=== PATIENT | female | born 1995 | race Caucasian/White ===

== ENCOUNTER 2023-09-16 22:49 | Emergency (ER) | payer OTHER ==
[~2023-09-16] VITALS: Ht 162.6 cm; Wt 77.2 kg
[2023-09-16] MEDS ORDERED: SERT25TA PO (23:00)
[2023-09-16 23:37] LABS: AMPHETAMINE SCREEN, URINE NEGATIVE (NEGATIVE); BARBITURATE SCREEN URINE NEGATIVE (NEGATIVE); BILIRUBIN,URINE NEGATIVE (NEGATIVE); CANNABINOID SCREEN, URINE NEGATIVE (NEGATIVE); CLARITY,URINE CLEAR; COCAINE SCREEN URINE NEGATIVE (NEGATIVE); COLOR,URINE YELLOW; GLUCOSE, URINE (UA) NEGATIVE (NEGATIVE); KETONES,URINE NEGATIVE (NEGATIVE); METHADONE STAT NEGATIVE (NEGATIVE); NITRITE,URINE NEGATIVE (NEGATIVE); OPIATE SCREEN URINE NEGATIVE (NEGATIVE); OXYCODONE STAT NEGATIVE (NEGATIVE); PROTEIN,URINE NEGATIVE (NEGATIVE); TRICYCLIC ANTIDEPRESSANTS SCRE NEGATIVE (NEGATIVE)
[2023-09-16 23:38] LABS: AMORPHOUS SEDIMENT,UR FEW AMOR URATES /LPF; BACTERIA,URINE FEW /HPF; LEUKOCYTE ESTERASE ,URINE NEGATIVE (NEGATIVE); RBC,URINE 0-2 /HPF; WBC,URINE RARE /HPF
--- NOTE | 2023-09-17 00:42 | ED Fall/Injury ---
General Chief Complaint: Trauma-Non Activation Stated Complaint: FALL - BACK PAIN Nursing Triage Note: C/O MID BACK PAIN AFTER TRIPPING/FALLING DOWN APPROX. 6 STAIRS APPROX. 1944. DENIES OTHER INJURIES. APAP TAKEN RADIOLOGY TECHNICIAN. Source: patient History of Present Illness Date Seen by Provider: Sep 16, 2023 Time Seen by Provider: 23:00 Initial Comments PT ARRIVES VIA POV FROM HOME PT STATES AROUND 1944 TONIGHT, SHE WENT OUTSIDE WHILE IT WAS RAINING AND SLIPPED ON WOODEN STEPS AND FELL DOWN APPROXIMATELY 6 STAIRS, LANDING ON HER BACK, AND HITTING THE BACK OF HER HEAD ON THE STAIRS NO LOSS OF CONSCIOUSNESS NO NECK PAIN C/O HEADACHE C/O MID BACK PAIN NO ARM OR LEG PAIN OR INJURY NO PARESTHESIAS OR MOTOR DEFICITS STATES IT "KNOCKED THE WIND OUT OF ME" NO SHORTNESS OF BREATH, BUT IT HURTS TO BREATHE, AND PAIN RADIATES ALL AROUND TO THE FRONT OF HER CHEST HURTS TO RAISE HER ARMS OR MOVE, OR SIT STRAIGHT UP + NAUSEA, NO VOMITING NO VISION CHANGES NO DIZZINESS TOOK 1 GRAM OF TYLENOL PRIOR TO ARRIVAL, WITHOUT RELIEF NO CHRONIC MEDICAL PROBLEMS NO PRIOR NECK OR BACK PAIN OR INJURIES LMP MID AUGUST, NORMAL. NO CONTROL PCP: [facility]. M0VED TO [facility] ABOUT 2 YEARS AGO Allergies and Home Medications Allergies Coded Allergies: No Known Drug Allergies (Unverified , 09/16/23) Patient Home Medication List Home Medication List Reviewed: Yes Cyclobenzaprine HCl (Cyclobenzaprine HCl) 10 Mg Tablet, 10 MG PO Q8H PRN for SPASMS Prescribed by: DAT ABERNATHY on 09/17/23104 Naproxen (Naproxen) 500 Mg Tablet.dr, 500 MG PO BID Prescribed by: DAT ABERNATHY on 09/17/23104 Sertraline HCl (Zoloft) 25 Mg Tablet, Unknown Dose PO, (Reported) Entered as Reported by: STEPHANIE BOURGEOIS on 09/16/23 2300 Last Action: New Order Review of Systems Review of Systems Constitutional: no symptoms reported Eyes: No Symptoms Reported Ears, Nose, Mouth, Throat: no symptoms reported Respiratory: see HPI Cardiovascular: see HPI Gastrointestinal: see HPI; No abdominal pain; nausea Genitourinary: no symptoms reported Musculoskeletal: see HPI, back pain Skin: no symptoms reported Psychiatric/Neurological: See HPI, Headache; Denies Numbness, Denies Paresthesia, Denies Tingling, Denies Tremors, Denies Weakness Past Dosdboo-Nuqlvt-Czcyes Hx Patient Social History Tobacco Use?: Yes Tobacco type used: Cigarettes Smoking Status: Current Everyday Smoker Substance use?: No Alcohol Use?: No Pt feels they are or have been: No Past Medical History Surgery/Hospitalization HX: CHOLECYSTECTOMY, DEPERSSION/ANXIETY Surgeries: Yes Gallbladder Respiratory: No Cardiac: No Neurological: No : No Last Menstrual Period: Aug 27, 2023 Reproductive Disorders: No Genitourinary: No Gastrointestinal: Yes (S/P CHOLECYSTECTOMY) Musculoskeletal: No Endocrine: No HEENT: No Cancer: No Psychosocial: Yes Anxiety, Depression Integumentary: No Blood Disorders: No Physical Exam Vital Signs Vital Signs - First Documented 09/16/23 22:54 Temp 36.3 Pulse 79 Resp 16 B/P (MAP) 103/70 (81) Pulse Ox 96 O2 Delivery Room Air Capillary Refill : Less Than 3 Seconds Height, Weight, BMI Height: '" Weight: lbs. oz. kg; 29.00 BMI Method: General Appearance: WD/WN, no apparent distress HEENT: PERRL/EOMI, other (NO EXTERNAL EVIDENCE OF TRAUMA) Neck: non-tender, full range of motion, supple, normal inspection Cardiovascular: regular rate, rhythm, no murmur Respiratory: normal breath sounds, no respiratory distress, no accessory muscle use Gastrointestinal: non tender, soft Back: other (MID BACK TENDERNESS. NO EXTERNAL EVIDENCE OF TRAUMA) Extremities: normal range of motion, non-tender, normal inspection, no pedal edema, no calf tenderness, normal capillary refill Neurologic/Psychiatric: manager validation II-XII nml as tested, no motor/sensory deficits, alert, normal mood/affect, oriented x 3 Skin: normal color, warm/dry Progress/Results/Core Measures Results/Orders Lab Results Laboratory Tests Test 09/16/23 23:07 Range/Units Urine Color YELLOW Urine Clarity CLEAR Urine pH 6.0 5-9 Urine Specific [place] >=1.030 1.016-1.022 Urine Protein NEGATIVE NEGATIVE Urine Glucose (UA) NEGATIVE NEGATIVE Urine Ketones NEGATIVE NEGATIVE Urine Nitrite NEGATIVE NEGATIVE Urine Bilirubin NEGATIVE NEGATIVE Urine Urobilinogen 0.2 < = 1.0 MG/DL Urine Leukocyte Esterase NEGATIVE NEGATIVE Urine RBC (Auto) TRACE H NEGATIVE Urine RBC 0-2 /HPF Urine WBC RARE /HPF Urine Squamous Epithelial Cells 2-5 /HPF Urine Crystals PRESENT H /LPF Urine Amorphous Sediment FEW KRISTOPHER URATES H /LPF Urine Bacteria FEW H /HPF Urine Casts NONE /LPF Urine Mucus MODERATE H /LPF Urine Culture Indicated YES Urine Opiates Screen NEGATIVE NEGATIVE Urine Oxycodone Screen NEGATIVE NEGATIVE Urine Methadone Screen NEGATIVE NEGATIVE Urine Barbiturates Screen NEGATIVE NEGATIVE Ur Tricyclic Antidepressants Screen NEGATIVE NEGATIVE Urine Phencyclidine Screen NEGATIVE NEGATIVE Urine Amphetamines Screen NEGATIVE NEGATIVE Urine Methamphetamines Screen NEGATIVE NEGATIVE Urine Benzodiazepines Screen NEGATIVE NEGATIVE Urine Cocaine Screen NEGATIVE NEGATIVE Urine Cannabinoids Screen NEGATIVE NEGATIVE My Orders Orders - DAT ABERNATHY DO Urine Bedside (09/16/23 23:05) Ct Head/Cervical Spine Wo (09/16/23 23:05) Ct Thoracic/Lumbar Spine Wo (09/16/23 23:05) Chest 1 View, Ap/Pa Only (09/16/23 23:05) Drug Screen Stat (Urine) (09/16/23 23:05) Ua Culture If Indicated (09/16/23 23:05) Ct Chest/Abdomen/Pelvis Wo (09/16/23 23:05) Urine Culture (09/16/23 23:07) Rx-Cyclobenzaprine Tablet (Rx-Flexeril T (09/17/23 00:59) Rx-Naproxen (Rx-Naprosyn) (09/17/23 00:59) Rx-Tramadol Hcl (Rx-Ultram) (09/17/23 00:59) Vital Signs/I&O 09/16/23 09/17/23 22:54 01:10 Temp 36.3 36.5 Pulse 79 74 Resp 16 16 B/P (MAP) 103/70 (81) 114/69 Pulse Ox 96 97 O2 Delivery Room Air Room Air Blood Pressure Mean: 81 Progress Progress Note : Progress Note VITALS STABLE NO DYSPNEA NO HYPOXIA CT HEAD/C-SPINE, CT T-L SPINE AND CT CHEST/ABDOMEN/PELVIS--MILD COMPRESSION T5, OTHERWISE NO ACUTE TRAUMATIC INJURY DISCUSSED TEST RESULTS, ANTICIPATED COURSE, SYMPTOMATIC TREATMENT, MEDICATIONS, NEED FOR FOLLOW UP AND RETURN PRECAUTIONS NO PRIOR VISITS HERE Diagnostic Imaging Comments CXR--NO ACUTE PROCESS, PENDING RADIOLOGIST REVIEW CT HEAD/CERVICAL SPINE--PER [facility] VIA FAX AT 1989 -NO ACUTE FINDINGS CT THORACIC/LUMBAR SPINE--PER [facility] VIA FAX AT [phone] -MILD LOSS OF VERTEBRAL HEIGHT AT T5 LEVEL, WITHOUT PARASPINAL EDEMA. POSSIBLE SUPERIOR ENDPLATE COMPRESSION FRACTURE OF UNCLEAR CHRONICITY. -NORMAL LUMBAR SPINE CT. CT CHEST/ABDOMEN/PELVIS--PER [facility] VIA FAX AT [phone]] -NORMAL CHEST CT -NO ACUTE FINDINGS IN ABDOMEN OR PELVIS Reviewed: Reviewed by Me Departure Impression Primary Impression: Fall down stairs Additional Impressions: Traumatic compression fracture of T5 vertebra Minor head injury without loss of consciousness Neck strain Disposition: HOME, SELF-CARE Condition: Stable Departure-Patient Inst. Decision time for Depature: 01:00 Referrals: [facility] (PCP/Family) Primary Care Physician TRISH REIS DO Patient Instructions: Cervical Sprain ED, General Trauma, Adult ED, Minor Head Injury, Adult ED, Vertebral Compression Fracture ED Add. Discharge Instructions: ALTERNATE ICE AND HEAT TO SORE AREAS AT 20 MINUTE INTERVALS ACTIVITES TOLERATED FOLLOW UP WITH DR. REIS, TRAUMA SURGEON, OR WITH [facility] IN 1 WEEK IF NO BETTER All discharge instructions reviewed with patient and/or family. Voiced understanding. Scripts Naproxen (Naproxen) 500 Mg Tablet. 500 MG PO BID, #20 TAB Prov: DAT ABERNATHY DO 09/17/23 Cyclobenzaprine HCl (Cyclobenzaprine HCl) 10 Mg Tablet 10 MG PO Q8H PRN for SPASMS, #15 TAB 0 Refills Prov: DAT ABERNATHY DO 09/17/23 DAT AEBRNATHY DO Sep 17, 2023 00:42
[2023-09-17] MEDS ORDERED: RX-NAPROXEN (NAPROSYN) 250 MG TAB PPK#4 PO STA (00:59)
[2023-09-17] MEDS ORDERED: RX-CYCLOBENZAPRINE 10 MG (FLEXERIL) TAB PPK#3 PO STA (00:59)
[2023-09-17] MEDS ORDERED: TRAM50TA3 PO ×2 (01:05→01:07)
[2023-09-17] MEDS ORDERED: CYCL10TA25 PO (01:05)
[2023-09-17] MEDS ORDERED: NAPR500T8 PO (01:05)
[2023-09-17 01:10] VITALS: BP 114/69
--- NOTE | 2023-09-17 07:34 | Diagnostic Imaging Report ---
INDICATION: Trauma, fall down flight of stairs, pain. TECHNIQUE: Single view chest 11:46 PM CORRELATION STUDY: None FINDINGS: The heart size, mediastinal configuration and pulmonary vascularity are within normal limits. The lungs are clear with no consolidating infiltrate. There is no significant effusion or pneumothorax. IMPRESSION: 1. Negative appearing single view chest. Dictated by: Dictated on workstation # [id number]
--- NOTE | 2023-09-17 07:46 | Diagnostic Imaging Report ---
PROCEDURE: CT head and CT cervical spine without contrast. TECHNIQUE: Multiple contiguous axial images were obtained through the brain and cervical spine without the use of intravenous contrast. Sagittal and coronal reformations through the cervical spine were then performed. Auto Exposure Controls were utilized during the CT exam to meet ALARA standards for radiation dose reduction. INDICATION: Fall. Head and neck pain. COMPARISON: None. FINDINGS: CT head: No large acute territorial ischemia, mass, or hemorrhage. No midline shift or mass effect. The ventricles, cortical sulci, and basilar cisterns are patent and unremarkable. The calvarium is intact. Retained secretions are seen in the right maxillary sinus. The mastoid air cells are clear. CT cervical spine: No acute fracture or dislocation is seen in the cervical spine. No focal osseous lesions. Vertebral body heights are well-maintained. The craniocervical junction is well-maintained. Mild degenerative changes are seen in the cervical spine with disc osteophyte complexes and uncovertebral arthropathy. Soft tissues of the neck are unremarkable. Small nodule seen in the right lobe of the thyroid measuring 0.8 cm. The lung apices are clear. IMPRESSION: 1. No hemorrhage or focal intra-axial mass. No CT evidence of large acute territorial ischemia. 2. No acute fracture or dislocation in the cervical spine. Agree with overnight report. Dictated by: Dictated on workstation # [id number]
--- NOTE | 2023-09-17 08:45 | Diagnostic Imaging Report ---
PROCEDURE: CT thoracic and lumbar spine without contrast. TECHNIQUE: Multiple contiguous axial images were obtained through the thoracic and lumbar spine without the use of intravenous contrast. Sagittal and coronal reformations were then performed. All CT scans use one or more of the following dose optimizing techniques: automated exposure control, MA and/or KvP adjustment based on a patient size and exam type, or iterative reconstruction. INDICATION: 28-year-old female, trauma, fall down a flight of stairs, back pain. CORRELATION STUDY: None FINDINGS: Thoracic spine: Thoracic spinal alignment is anatomic. There is subtle loss superior T5 endplate. No appreciable paraspinal edema. Remaining thoracic vertebral body heights are preserved and unremarkable. Posterior elements intact. No osseous narrowing of the canal and/or foramina. Paraspinal soft tissues including visualized lungs are clear. Lumbar spine: Lumbar spinal alignment anatomic. Lumbar vertebral body heights maintained. Disc spaces preserved. Posterior elements intact and normal in alignment. No osseous narrowing or encroachment of the canal and/or foramina. Paraspinal soft tissues appearing unremarkable. Gallbladder is absent. Small nonobstructing right renal stone. IMPRESSION: 1. Mild loss of height superior T5 endplate without paraspinal edema. Possible superior endplate compression fracture of indeterminate age. 2. Negative for fracture or traumatic subluxation lumbar spine. Initial report was provided by [facility]. Dictated by: Dictated on workstation # [id number]
--- NOTE | 2023-09-17 09:19 | Diagnostic Imaging Report ---
PROCEDURE: CT chest, abdomen, and pelvis without contrast. TECHNIQUE: Multiple contiguous axial images were obtained through the chest, abdomen, and pelvis without the use of intravenous contrast. Auto Exposure Controls were utilized during the CT exam to meet ALARA standards for radiation dose reduction. INDICATION: 28-year-old female, trauma, fall down a flight of stairs, back pain. CORRELATION STUDY: None FINDINGS: CT CHEST: Heart size normal. No pericardial effusion. Thoracic aorta contour unremarkable. Likely mild residual thymic tissue anterior mediastinum. No significant mediastinal hematoma. Lungs clear without contusion, effusion and/or pneumothorax. Partially visualized bilateral shoulder girdles, sternum, ribs and thoracic spine demonstrate no acute displaced fracture. Subtle depression superior T5 endplate. CT ABDOMEN and PELVIS: Liver, spleen, pancreas, adrenal glands, kidneys and abdominal aorta demonstrate no acute abnormality. Few shotty aortocaval and mesenteric lymph nodes. Gallbladder absent. Gastrointestinal track unremarkable with normal appendix. No abdominal ascites and/or free air. Urinary bladder decompressed. Uterus and adnexa unremarkable. The osseous structures including the lumbar spine, pelvis and bilateral hips are intact. IMPRESSION: CT CHEST: 1. Question subtle compression of the superior T5 endplate. Better assessed at dedicated thoracic spine imaging. 2. Otherwise, negative for acute traumatic abnormality of the chest. CT ABDOMEN and PELVIS: 1. Negative for acute traumatic abnormality of the abdomen and/or pelvis. Initial report was provided by [facility]. Dictated by: Dictated on workstation # [id number]
== END 2023-09-17 01:11 | disposition home or self-care (01) ==
LOC: ER 22:51
DX: S09.90XA Unspecified injury of head, initial encounter (principal); S22.050A Wedge compression fracture of T5-T6 vertebra, initial encounter for closed fracture; S16.1XXA Strain of muscle, fascia and tendon at neck level, initial encounter; F17.210 Nicotine dependence, cigarettes, uncomplicated; W01.198A Fall on same level from slipping, tripping and stumbling with subsequent striking against other object, initial encounter; Y92.009 Unspecified place in unspecified non-institutional (private) residence as the place of occurrence of the external cause
CPT/HCPCS: 70450; 71045; 71250; 72125; 72128; 72131; 74176; 80306; 81000; 84703; 87088